=== PATIENT | female | born 1940 | race Caucasian/White ===

== ENCOUNTER → 2020-04-17 10:38 | Outpatient (CLI) | payer MEDICARE, SELFPAY ==
--- NOTE | 2020-04-17 | DI.MRI.S_ITS ---
PROCEDURE: MR SHOULDER LT WO CON INDICATIONS: Fracture of left shoulder girdle, part unspecified TECHNIQUE: Noncontrast oblique coronal T2 fast spin echo with fat saturation, oblique sagittal T1 spin echo and T2 fast spin echo with fat saturation, axial T1 spin echo and T2 fast spin echo with fat saturation through the shoulder. COMPARISON: None. FINDINGS: Image quality: Excellent. Rotator cuff: There is tendinosis and low-grade articular and bursal surface partial thickness tear involving distal supraspinatus at its insertion on the humeral head extending to musculotendinous junction. Distal infraspinatus tendinosis is also seen. Distal subscapularis tendinosis and low-grade intrasubstance partial-thickness tear is also noted. No full-thickness rotator cuff tendon rupture. Sagittal images demonstrate mild to moderate supraspinatus muscle atrophy. Bones and bursae: No bone marrow contusions or fractures. Moderate acromioclavicular joint and glenohumeral joint osteoarthritic changes are seen. Small to moderate amount of joint effusion and subacromial subdeltoid bursal fluid is noted. Capsule and soft tissues: In the absence of intra-articular contrast, there is suggestion of posterior superior labral tear at 11 to 12 o'clock position and anterior-inferior labral tear at 5 to 6 o'clock position. The glenohumeral ligaments appear intact. The long head of the biceps tendon demonstrates normal location and morphology. The rotator interval appears normal, without fibrosis. The coracohumeral ligament is normal in thickness. IMPRESSION: 1. Tendinosis and low-grade articular and bursal surface partial thickness tear involving distal supraspinatus extending to musculotendinous junction. Distal infraspinatus tendinosis. Distal subscapularis tendinosis and low-grade intrasubstance partial-thickness tear. No full-thickness rotator cuff tendon rupture. 2. Moderate acromioclavicular joint and glenohumeral joint osteoarthritis. 3. Suggestion of posterior superior labral tear at 11 to 12 o'clock position and anterior-inferior labral tear at 5 to 6 o'clock position. Dictated by: Ozzie Bravo M.D. on 04/17/2020 at 12:00 Approved by: Ozzie Bravo M.D. on 04/17/2020 at 12:02
== END ==
PROVIDERS: Family Provider Ophthalmology; PCP Family Medicine; Referring Provider Family Medicine; Visit Provider Orthopaedic Surgery Adult Reconstructive Orthopaedic Surgery
DX: S42.92XA Fracture of left shoulder girdle, part unspecified, initial encounter for closed fracture (principal); M75.112 Incomplete rotator cuff tear or rupture of left shoulder, not specified as traumatic; M47.812 Spondylosis without myelopathy or radiculopathy, cervical region; X58.XXXA Exposure to other specified factors, initial encounter
CPT/HCPCS: 73221

== ENCOUNTER → 2021-11-19 10:10 | Outpatient (CLI) | payer MEDICARE, SELFPAY ==
[2021-11-19 19:59] LABS: Add Manual Diff / Slide Review NO; Basophils Absolute Auto 0 /uL (0-100); Basophils Percent Auto 0.6 % (0-2); Eosinophils Absolute Auto 100 /uL (0-450); Eosinophils Percent Auto 3.2 % (2-4); Hematocrit 38.8 % (36-46); Hemoglobin 12.9 g/dL (12.0-16.0); Lymphocytes Absolute Auto 1200 /uL (1100-4500); Lymphocytes Percent Auto 32.9 % (25-40); Mean Corpuscular HGB Conc 33.2 % (30-36); Mean Corpuscular Hemoglobin 29.7 PG (26-34); Mean Corpuscular Volume 89.5 fL (80-100); Monocytes Absolute Auto 300 /uL (0-900); Monocytes Percent Auto 7.4 % (3-14); Neutrophils Absolute Auto 2100 /uL (1500-7000); Neutrophils Percent Auto 55.9 % (50-75); Platelet Count 207 X10^3/uL (150-400); Red Blood Cell Count 4.34 X10^6/uL (4.0-5.2); Red Cell Distribution Width 13.7 % (11.6-14.8); White Blood Cell Count 3.8 X10^3/uL (4.5-11.0)
[2021-11-19 20:01] LABS: Blood Urea Nitrogen 26 mg/dL (7-17); Calcium 9.2 mg/dL (8.4-10.2); Carbon Dioxide 28 mmol/L (22-32); Chloride 108 mmol/L (98-107); Cholesterol 186 mg/dL (140-199); Estimated Glomerular Filt Rate > 60 mL/min (>60); Glucose 95 mg/dL (80-110); HDL Cholesterol 70 mg/dL (40-60); LDL Cholesterol Calculated 106 mg/dL (<100); Potassium 4.5 mmol/L (3.4-5.1); Sodium 141 mmol/L (137-145); Triglycerides 50 mg/dL (35-150)
[2021-11-19 20:42] LABS: TSH w/ Reflex to FT4 1.67 uIU/mL (0.47-4.68)
[2021-11-19 21:03] LABS: HEMOLYSIS < 15 (0-50); Vitamin B12 367 pg/mL (239-931)
== END ==
PROVIDERS: Family Provider Ophthalmology; PCP Family Medicine; Visit Provider Family Medicine
DX: I10 Essential (primary) hypertension (principal); M25.512 Pain in left shoulder; F33.1 Major depressive disorder, recurrent, moderate; G89.29 Other chronic pain; M54.6 Pain in thoracic spine; R53.83 Other fatigue; T69.1XXD Chilblains, subsequent encounter; Z13.220 Encounter for screening for lipoid disorders; T69.1XXA Chilblains, initial encounter
CPT/HCPCS: 80048; 80061; 82607; 84443; 85025

== ENCOUNTER → 2022-10-08 13:01 | Outpatient (CLI) | payer MEDICARE, SELFPAY ==
[2022-10-08 20:14] LABS: Add Manual Diff / Slide Review NO; Basophils Absolute Auto 0 /uL (0-100); Basophils Percent Auto 0.7 % (0-2); Eosinophils Absolute Auto 200 /uL (0-450); Eosinophils Percent Auto 3.9 % (2-4); Hematocrit 40.2 % (36-46); Hemoglobin 13.3 g/dL (12.0-16.0); Lymphocytes Absolute Auto 1200 /uL (1100-4500); Lymphocytes Percent Auto 28.6 % (25-40); Mean Corpuscular Hemoglobin 29.6 PG (26-34); Mean Corpuscular Volume 89.8 fL (80-100); Monocytes Absolute Auto 500 /uL (0-900); Monocytes Percent Auto 10.6 % (3-14); Neutrophils Absolute Auto 2400 /uL (1500-7000); Neutrophils Percent Auto 56.2 % (50-75); Platelet Count 233 X10^3/uL (150-400); Red Blood Cell Count 4.47 X10^6/uL (4.0-5.2); Red Cell Distribution Width 13.4 % (11.6-14.8); White Blood Cell Count 4.3 X10^3/uL (4.5-11.0)
[2022-10-08 20:22] LABS: Blood Urea Nitrogen 18 mg/dL (7-17); Calcium 9.5 mg/dL (8.4-10.2); Carbon Dioxide 29 mmol/L (22-32); Chloride 102 mmol/L (98-107); Estimated Glomerular Filt Rate > 60 mL/min (>60); Glucose 79 mg/dL (80-110); HEMOLYSIS 17 (0-50); Potassium 4.1 mmol/L (3.4-5.1); Sodium 138 mmol/L (137-145)
[2022-10-08 21:04] LABS: Vitamin B12 500 pg/mL (239-931)
== END ==
PROVIDERS: Family Provider Ophthalmology; PCP Family Medicine; Visit Provider Family Medicine
DX: F32.1 Major depressive disorder, single episode, moderate (principal); D72.819 Decreased white blood cell count, unspecified; I10 Essential (primary) hypertension; E53.8 Deficiency of other specified B group vitamins
CPT/HCPCS: 80048; 82607; 85025

== ENCOUNTER → 2023-05-13 10:03 | Outpatient (CLI) | payer MEDICARE, SELFPAY ==
[2023-05-13 11:36] LABS: Add Manual Diff / Slide Review NO; Basophils Absolute Auto 0 /uL (0-100); Basophils Percent Auto 0.6 % (0-2); Eosinophils Absolute Auto 100 /uL (0-450); Eosinophils Percent Auto 2.1 % (2-4); Hematocrit 39.1 % (36-46); Hemoglobin 13.1 g/dL (12.0-16.0); Lymphocytes Absolute Auto 1200 /uL (1100-4500); Mean Corpuscular HGB Conc 33.4 % (30-36); Mean Corpuscular Hemoglobin 29.3 PG (26-34); Mean Corpuscular Volume 87.8 fL (80-100); Monocytes Absolute Auto 300 /uL (0-900); Monocytes Percent Auto 6.9 % (3-14); Neutrophils Absolute Auto 3000 /uL (1500-7000); Neutrophils Percent Auto 64.4 % (50-75); Platelet Count 221 X10^3/uL (150-400); Red Blood Cell Count 4.46 X10^6/uL (4.0-5.2); Red Cell Distribution Width 14.7 % (11.6-14.8); White Blood Cell Count 4.6 X10^3/uL (4.5-11.0)
[2023-05-13 12:16] LABS: BUN Creatinine Ratio 34.4 (6-22); Blood Urea Nitrogen 21 mg/dL (7-17); Carbon Dioxide 29 mmol/L (22-32); Chloride 106 mmol/L (98-107); Estimated Glomerular Filt Rate > 60 mL/min (>60); Glucose 92 mg/dL (80-110); HEMOLYSIS < 15 (0-50); Potassium 4.1 mmol/L (3.4-5.1); Sodium 139 mmol/L (137-145)
[2023-05-13 12:53] LABS: Bilirubin Urine UA NEGATIVE (NEGATIVE); Glucose Urine UA NEGATIVE (Negative); Ketones Urine UA NEGATIVE (NEGATIVE); Leukocyte Esterase Urine UA TRACE (NEGATIVE); Nitrite Urine UA NEGATIVE (Negative); Occult Blood Urine UA NEGATIVE (Negative); Protein Urine UA NEGATIVE (Negative); Specific Gravity Urine UA 1.015 (1.000-1.035); Urobilinogen Urine UA 0.2 E.U./dL (0.2)
[2023-05-13 13:13] LABS: Appearance Urine UA Clear; Color Urine UA Yellow; pH Urine UA 6.5 (4.5-8.0)
[2023-05-13 13:14] LABS: Bacteria Urine Occasional (0-1); Culture Indicated Urine Specimen Cultured; RBC Urine None Seen (0-5/HPF); Squamous Epithelial Cell Urine 0-1 /HPF (0-5/HPF); WBC Urine 0-1/HPF (0-5/HPF)
== END ==
PROVIDERS: Family Provider Ophthalmology; PCP Family Medicine; Referring Provider Orthopaedic Surgery; Visit Provider Orthopaedic Surgery
DX: Z01.818 Encounter for other preprocedural examination (principal); Z01.812 Encounter for preprocedural laboratory examination; N39.0 Urinary tract infection, site not specified
CPT/HCPCS: 36415; 80048; 81001; 85025; 87086; 93005

== ENCOUNTER → 2023-06-17 12:16 | Outpatient (CLI) | payer MEDICARE, SELFPAY ==
--- NOTE | 2023-06-17 | DI.CT.S_ITS ---
PROCEDURE: CT SHOULDER LEFT WITHOUT CON INDICATIONS: Primary osteoarthritis, left shoulder TECHNIQUE: Noncontrast 1-1.5 mm thick sections acquired from the acromioclavicular joint to the inferior scapula, with coronal and sagittal reformatting. COMPARISON: None. FINDINGS: Image quality: Excellent. Bones: Moderate acromioclavicular joint osteoarthritic changes are seen with joint space narrowing, subchondral sclerosis and downward osteophyte formation depressing the musculotendinous junction of supraspinatus. Severe glenohumeral joint osteoarthritic changes are seen with complete loss of joint space, extensive subchondral sclerosis and prominent marginal osteophyte formation. There is no acute shoulder fracture or dislocation. No suspicious bony lesions. The visualized left upper to mid ribs are intact. Soft tissues: There is no full-thickness rotator cuff tendon rupture. [id number] supraspinatus muscle atrophy is noted on sagittal images. No abnormal soft tissue calcifications. Moderate joint effusion and subacromial subdeltoid bursal fluid is seen, no calcified intra-articular loose bodies. There is no axillary lymphadenopathy by size criteria. Visualized left lung field is clear. IMPRESSION: 1. Moderate acromioclavicular joint osteoarthritis and severe glenohumeral joint osteoarthritis. No shoulder fracture or dislocation. No suspicious bony lesions. 2. No full-thickness rotator cuff tendon rupture. Mild to moderate supraspinatus muscle atrophy. No abnormal soft tissue calcifications. 3. Moderate joint effusion and subacromial subdeltoid bursal fluid. No calcified loose bodies. Dictated by: Ozzie Bravo M.D. on 06/17/2023 at 17:12 Approved by: Ozzie Bravo M.D. on 06/17/2023 at 17:14
== END ==
PROVIDERS: Family Provider Ophthalmology; PCP Family Medicine; Referring Provider Orthopaedic Surgery; Visit Provider Orthopaedic Surgery
DX: M19.012 Primary osteoarthritis, left shoulder (principal); M25.412 Effusion, left shoulder
CPT/HCPCS: 73200

== ENCOUNTER 2023-06-30 08:36 | Inpatient (IN) | payer MEDICARE, SELFPAY ==
[2023-06-22 08:54] VITALS: BMI 28.6
[2023-06-30] MEDS: LACTATED RINGERS 1,000 ML 42 ML IV (09:03)
[2023-06-30 09:04] VITALS: BP 194/84; PULSE 64; RESP 16; TEMP 36.1; O2SAT 100; BMI 28.6
[2023-06-30] MEDS: ACETAMINOPHEN 325 MG TABLET 975 MG PO (10:23)
--- NOTE | 2023-06-30 10:30 | DI.RAD.S_ITS ---
PROCEDURE: XR SHOULDER LT 1V INDICATIONS: post-op RTSA TECHNIQUE: 1 views of the shoulder were acquired. COMPARISON: None. FINDINGS: Bones: No fractures or dislocations. Postoperative changes from reverse left shoulder arthroplasty. The hardware is in expected position. No suspicious bony lesions. Visualized ribs appear intact. Soft tissues: No suspicious soft tissue calcifications. Overlying postsurgical changes are present. IMPRESSION: Expected postoperative appearance of left reverse shoulder arthroplasty. Dictated by: Ramana Downs M.D. on 06/30/2023 at 14:04 Approved by: Ramana Downs M.D. on 06/30/2023 at 14:06
--- NOTE | 2023-06-30 10:37 | PM.PREOP ---
Pre-operative Note Interval Note History & Physical reviewed/Exam performed by Physician: Yes Changes to H&P: No
[2023-06-30] MEDS: CEFAZOLIN 2 GM/100 ML PREMIX 100 ML IV (11:13)
--- NOTE | 2023-06-30 11:14 | SUR.PREOP ---
Block start time [1045] . Monitoring initiated and maintained throughout procedure. Oxygen and medications given per anesthesiologist instructions. Patient remained stable throughout procedure, no adverse reactions noted. Block end time [1050].
--- NOTE | 2023-06-30 11:41 | SUR.OPER ---
Beach chair with [place] shoulder positioner. Lower body on padded OR bed. Head in foam padded head cradle, secured with straps. Non-operative arm secured <90 degrees abduction. Pillow under knees. Safety belt at thigh. Cloth tape over blanket over lower legs. operative arm draped free
[2023-06-30] MEDS: TRANEXAMIC ACID 1,000 MG VIAL 1000 MG INJ (11:54)
[2023-06-30] MEDS: BUPIVACAINE 0.25% (PF) 30 ML, EPINEPHrine 0.15 MG INJ (11:54)
--- NOTE | 2023-06-30 13:08 | P.OP_ITS ---
Operative Date/Time/Diagnoses Date of procedure: 06/30/23 Time of procedure: 13:09 Pre-op diagnosis: Left rotator cuff tear arthropathy Post-op diagnosis: same Procedure & Clinicians Procedure: Left reverse total shoulder arthroplasty Same procedure as scheduled: Yes Indications: Indications: This is a who has rotator cuff arthropathy. Symptoms have been present for years, insidious onset. Patient has failed conservative therapy including injections, physical therapy, anti-inflammatories and activity modification. After extensive discussion in clinic, they wished to go forward with surgery. Risks and benefits were described including the risk of infection, bleeding, damage to internal structures including nerves. We also discussed the risk of failure of surgery and the need for revision surgery as well as the risk of anesthesia. The patient expressed understanding with these risks and wished to go forward with surgery. Surgeon: Alex Suazo Consulting Engineer: Keely Billings Anesthesia Type: General Operative Notes Findings: Findings: Osteoarthritis of the glenoid and humeral head as well as a defient rotator cuff as noted on preoperative imaging and under direct visualization Closure Type: primary Specimen(s): none sent Prosthetic devices, grafts, tissues, transplants, or devices: Tornier implants Base plate: standard 25 mm, 15 degree wedge Glenosphere: Standard 36 mm Stem: Perform 3 Poly: +0 concentric Estimated Blood Loss (mL): 50 Procedure in detail: Patient was seen in the preoperative holding unit. The correct left shoulder was identified and marked with my initials. Again we discussed the risks and benefits of surgery and they wished to go forward with surgery. The patient was brought back to the operating room and placed supine on the operating table. Smooth endotracheal intubation was performed by anesthesia. All prominences were padded and they were placed into the beach chair position. Intravenous antibiotics were given. The left shoulder was then prepped with the standard sterile preparation and draping. A time-out was then performed in my initials were again identified on the correct shoulder. 1 g of IV tranexamic acid was given. A standard deltopectoral incision was made. Skin flaps were made. The cephalic vein was identified and retracted laterally. This was protected throughout the remainder of the case. Sharp dissection was made along the deltoid, subacromial and subcoracoid space to release adhesions. The conjoined tendon was identified and the axillary nerve was palpated and continuous using the tug test. It was protected throughout the remainder of the case. A brown retractor was placed underneath the deltoid muscle and a darach retractor underneath the conjoint tendon. The anterior circumflex artery and associated veins on the lower border of the subscapularis were identified and tied off using 0-Vicryl. The biceps tendon was identified in the bicipital groove. This was released from its sheath, and taken from its origin on the glenoid and tied into the pectoralis tendon for a solid tenodesis. We then began a subscapularis peel. The subscapularis was tagged with an Ethibond suture. A 360 degree circumferential release of the subscapularis was performed with protection of the axillary nerve. The coracohumeral ligament was released at the base of the coracoid. The coracoacromial ligament was left intact. The shoulder was then dislocated. Osteophytes were removed using combination of rongeur and osteotome. The rotator cuff was noted to be insufficient. An intramedullary guide was used set at version of 20 ?. Using an oscillating saw a conservative humeral head cut was made. Impaction reamers were reamed up to a size 3 stem with a built-in angle 135?. A neck protector was placed. Attention was then turned to the glenoid. After retracting the humeral head posteriorly a circumferential release was performed of the capsule with protection of the axillary nerve. The labrum was then released starting at the biceps anchor and going around the rim a small amount of triceps was released from the inferior glenoid. A center guide pin was then placed using the guide, followed by Reamer. After adequate cartilage was removed the center drill hole was drilled and measured. The base plate was then implanted and screwed into place. The superior drill hole was drilled and filled in a nonlocking fashion, followed by the inferior and anterior holes in locking fashion, the posterior hole was also filled. A 36 standard glenosphere was then selected and screwed into place onto the base plate. Turning back to the humerus, the humeral head was delivered and trialed with a 0 concentric. The arm was taken through range of motion and this was felt to be stable. The trial was then removed and a dilute Betadine wash was then performed with 1 L of sterile saline. Before placing the final implant, drill holes were made in the bicipital groove for the subscapularis repair, and sutures were passed through the drill holes. The final stem was then impacted into the humerus. The shoulder was then reduced and again brought through range of motion and was felt to be stable. The subscap was noted to be deficient and was unable to be repaired. The deltopectoral interval was then closed with #2 Ethibond. The skin was closed with 2-0 PDS and Monocryl followed by Aquacel dressing. Patient was awoken from anesthesia and brought back to the postoperative recovery unit without issue. They were placed into a sling. Assisting participation: This operation could not have been safely performed ( without compromising the technical results or length of the procedure) without the assistance of a skilled certified surgical first assistant. The certified surgical first assistant was medically necessary for proper positioning, retraction and manipulation of instruments, proper exposure, graft prep, and manipulation of tissue. Complications: none Post-operative Condition: stable Disposition: PACU Plan for aftercare: Postoperative instructions: Sling to remain on for 6 weeks. No external rotation past neutral for 6 weeks. Okay for the sling to come off for shower. Okay to shower over the Aquacel dressing. If any water gets underneath the dressing, remove the dressing. First postoperative visit in 2 weeks.
[2023-06-30 13:20] VITALS: BP 114/52; PULSE 61; RESP 13; TEMP 36.9; O2SAT 94
[2023-06-30 13:25] VITALS: BP 111/45; PULSE 60; RESP 12; O2SAT 94
[2023-06-30] MEDS: ONDANSETRON 4 MG/2 ML INJ IV (13:29)
[2023-06-30 13:30] VITALS: BP 104/65; PULSE 60; RESP 13; O2SAT 93
[2023-06-30 13:45] VITALS: BP 124/60; PULSE 61; RESP 14; O2SAT 95
[2023-06-30 14:00] VITALS: BP 124/59; PULSE 60; RESP 16; TEMP 36.4; O2SAT 95
== END 2023-06-30 14:50 | disposition home or self-care (01) | DRG 483 ==
PROVIDERS: Admitting Provider Orthopaedic Surgery; Family Provider Ophthalmology; PCP Family Medicine; Referring Provider Orthopaedic Surgery; Visit Provider Orthopaedic Surgery
PROC: 0RRK00Z Replacement of Left Shoulder Joint with Reverse Ball and Socket Synthetic Substitute, Open Approach (ICD-10-PCS; CPT 23472; principal; 2023-06-30 10:15)
DX: M19.012 Primary osteoarthritis, left shoulder (principal); M75.102 Unspecified rotator cuff tear or rupture of left shoulder, not specified as traumatic
CPT/HCPCS: 64450; 73020; C1776; J0171; J0360; J0690; J1100; J1885; J2250; J2405; J3010

== ENCOUNTER → 2024-03-21 16:50 | Outpatient (CLI) | payer MEDICARE, SELFPAY | PROVIDERS: Family Provider Ophthalmology; PCP Family Medicine; Visit Provider Physician Assistant Medical | DX: N39.41 Urge incontinence (principal) | CPT/HCPCS: 87086 ==

== ENCOUNTER → 2024-03-28 15:09 | Outpatient (CLI) | payer MEDICARE, SELFPAY ==
--- NOTE | 2024-03-28 15:11 | DI.MRI.S_ITS ---
PROCEDURE: MR HEAD/BRAIN WO/W CON INDICATIONS: continued dizziness TECHNIQUE: Noncontrast axial T1 spin echo, axial T2 fast spin echo, sagittal and axial FLAIR, coronal T2 fast spin echo, axial gradient echo, axial diffusion and ADC through the brain. After the administration of contrast, axial and coronal and sagittal 3D VIBE or T1 spin echo with fat saturation through the brain. COMPARISON: None. FINDINGS: CSF Spaces: Basal cisterns are patent. No extra-axial fluid collections. Ventricles are normal in size and shape. Brain: No intracranial masses or hemorrhage. East/white matter interface is normal. Brainstem appears normal. Diffusion-weighted sequence is unremarkable without evidence of acute infarct. Normal intravascular flow voids are present. Skull and face: Calvarial marrow is normal in signal. Orbits appear normal. Bilateral intraocular lens replacements noted. Sinuses: Left maxillary sinus mucosal thickening measures up to 5 mm. Internal sinus debris present IMPRESSION: Mild age related atrophy and white matter chronic ischemic change without acute infarct, hemorrhage or mass lesion. Left maxillary mucosal sinus disease Approved by: Adriel Rousseau M.D. on 03/29/2024 at 12:49
--- NOTE | 2024-03-28 15:11 | DI.US.S_ITS ---
PROCEDURE: US PERIPH VENOUS LOW EXTREM BI INDICATIONS: L>R leg swelling since surgery in June TECHNIQUE: Real-time imaging, as well as color and pulse Doppler interrogation, were performed of the deep veins of both legs from the inguinal ligament to the popliteal fossa, with documentation of the visualized calf veins. COMPARISON: None. FINDINGS: Right: The common femoral, femoral, popliteal, and the visualized calf veins are normally compressible, and free of intraluminal thrombus. Color and pulse Doppler demonstrate normal phasic intravascular flow. There is normal augmentation response to distal compression maneuver. Left: The common femoral, femoral, popliteal, and the visualized calf veins are normally compressible, and free of intraluminal thrombus. Color and pulse Doppler demonstrate normal phasic intravascular flow. There is normal augmentation response to distal compression maneuver. On the left, there is a popliteal fluid collection seen without abnormal vascularity measuring 19 x 18 x 27 mm, likely representing a Noriega's cyst. IMPRESSION: No findings of deep venous thrombosis in either lower extremity. Dictated by: Ubaldo Diaz M.D. on 03/28/2024 at 16:14 Approved by: Ubaldo Diaz M.D. on 03/28/2024 at 16:15
[2024-03-28 15:47] LABS: Hematocrit 41.1 % (36-46); Hemoglobin 13.6 g/dL (12.0-16.0); Mean Corpuscular Hemoglobin 29.5 PG (26-34); Mean Corpuscular Volume 89.5 fL (80-100); Platelet Count 233 X10^3/uL (150-400); Red Blood Cell Count 4.59 X10^6/uL (4.0-5.2); Red Cell Distribution Width 13.9 % (11.6-14.8); White Blood Cell Count 5.7 X10^3/uL (4.5-11.0)
[2024-03-28 16:08] LABS: Alanine Aminotransferase 13 IU/L (<35); Albumin 3.8 g/dL (3.5-5.0); Albumin Globulin Ratio 1.4 (1.0-2.8); Alkaline Phosphatase 109 U/L (38-126); Aspartate Aminotransferase 22 IU/L (14-36); BUN Creatinine Ratio 24.6 (6-22); Bilirubin Total 0.9 mg/dL (0.2-1.3); Blood Urea Nitrogen 16 mg/dL (7-17); Calcium 9.7 mg/dL (8.4-10.2); Carbon Dioxide 29 mmol/L (22-32); Chloride 107 mmol/L (98-107); Estimated Glomerular Filt Rate > 60 mL/min (>60); Globulin 2.7 g/dL (1.7-4.1); Glucose 100 mg/dL (80-110); HEMOLYSIS < 15 (0-50); Potassium 4.4 mmol/L (3.4-5.1); Sodium 140 mmol/L (137-145); Total Protein 6.5 g/dL (6.3-8.2)
[2024-03-28 18:01] LABS: TSH w/ Reflex to FT4 1.93 uIU/mL (0.47-4.68)
== END ==
PROVIDERS: Family Provider Ophthalmology; PCP Family Medicine; Referring Provider Physician Assistant Medical; Visit Provider Physician Assistant Medical
DX: G31.9 Degenerative disease of nervous system, unspecified (principal); R42 Dizziness and giddiness; J32.0 Chronic maxillary sinusitis; M79.605 Pain in left leg; I10 Essential (primary) hypertension; N39.41 Urge incontinence
CPT/HCPCS: 36415; 70553; 80053; 82384; 84443; 85027; 87086; 93970; A9579

== ENCOUNTER → 2024-04-04 07:58 | Outpatient (CLI) | payer MEDICARE, SELFPAY | PROVIDERS: Family Provider Ophthalmology; PCP Family Medicine; Visit Provider Physician Assistant Medical | DX: N39.41 Urge incontinence (principal) | CPT/HCPCS: 87086 ==

== ENCOUNTER → 2024-06-21 12:13 | Outpatient (CLI) | payer MEDICARE, SELFPAY ==
--- NOTE | 2024-06-21 12:17 | DI.US.S_ITS ---
PROCEDURE: US RENAL COMPLETE INDICATIONS: uncontrolled HTN TECHNIQUE: Real-time scanning was performed of the kidneys and bladder, with image documentation. COMPARISON: None. FINDINGS: Kidneys: Kidneys are normal in size. Right kidney measures 10.5 cm long; left kidney measures 10.5 cm long. Right renal cortical thickness is 1.6 cm; left renal cortical thickness is 1.4 cm. Renal cortical echotexture is normal. No hydronephrosis or nephrolithiasis. No suspicious solid mass lesions. Bladder: Pre-void bladder volume is 81 mL. Post-void residual is 58 mL. Pre-void images demonstrate no intraluminal masses or stones. On pre-void images, neither ureteral jets are noted with color Doppler interrogation. (Of note, ureteral jets may not be detectable in up to 25% of cases due to insufficient differences in specific gravity between ureteral and bladder urine). Miscellaneous: No free pelvic fluid. IMPRESSION: Unremarkable ultrasound of the kidneys Approved by: Adriel Rousseau M.D. on 06/23/2024 at 12:05
--- NOTE | 2024-06-21 13:21 | DI.ECHO.S_ITS ---
[facility] : : [address] : : [place] : : [id number] : : Phone: [phone] Echocardiogram Report + :Name: SARAH ROMAN Study Date: 06/21/2024 Height: 63 in : :[facility] ReadingLocation: Weight: 165 lb : : Gender: Female BSA: 1.8 m2 : :: 1940 Age: 83 yrs BP: 183/95 mmHg: :Reason For Study: Syncope : :Ordering Physician: NEGRO, : :DECLAN Performed By: Xuan Balderas : :Referring: DECLAN TOM : + Interpretation Summary 1. Left ventricular contractility is normal. Estimate ejection fraction is greater than 55% with no segmental wall motion abnormalities. No LVH. Unable to comment on diastolic function. 2. The right ventricular contractility is normal. 3. Biatrial enlargement. All other cardiac chambers are of normal size. 4. Mild to moderate mitral regurgitation. 5. Mild aortic insufficiency. 6. No obvious intracardiac shunts. 7. No obvious intracardiac masses nor thrombi. 8. No hemodynamically significant pericardial effusion. 9. Elevated right-sided filling pressures. Conclusion: Normal biventricular systolic function with mild to moderate valvular insufficiencies. Procedure: A two-dimensional transthoracic echocardiogram with color flow and Doppler was performed. The study quality was technically adequate. There is no prior echocardiogram noted for this patient. The patient was in a bradycardic rhythm during the exam. The heart rate ranged between 40-56 bpm during the study. Left Ventricle: The left ventricle is normal in size and wall thickness. The ejection fraction is estimated to be 55-60%. Diastolic function could not be accurately assessed due to contradictory data. Right Ventricle: The right ventricle is normal in size and function. Atria: The left atrium is moderately dilated. The right atrium is moderate to severely dilated. There is no Doppler evidence for an interatrial shunt. Mitral Valve: The mitral valve leaflets appear mildly thickened, but open well. The mitral valve leaflets are slightly calcified. There is mild mitral annular calcification. There is no mitral valve stenosis. There is mild to moderate mitral regurgitation. Aortic Valve: The aortic valve is trileaflet. The aortic valve opens well. The aortic valve is slightly calcified. There is no hemodynamically significant valvular aortic stenosis. There is mild aortic regurgitation. Tricuspid Valve: The tricuspid valve leaflets are thin and pliable. There is a trace or physiologic amount of tricuspid regurgitation. Pulmonic Valve: The pulmonic valve is not well seen, but is grossly normal. There is no pulmonic valvular regurgitation. Great Vessels: The aortic root is normal size. The ascending aorta is at the upper limits of normal in size. The aortic arch is normal in size. The pulmonary artery is not well visualized, but is probably normal size. The IVC is dilated (diameter is greater than 2.1 cm) and it collapses less than 50% with a sniff. This suggests a high right atrial pressure of 15 mm Hg. Pericardium/ Pleura There is an anterior echo-free space consistent with a fat pad. There is no pericardial effusion. There is no pleural effusion. MMode/2D Measurements & Calculations LVIDd: 5.0 cm LVOT diam: 1.9 cm LVIDs: 3.0 cm Ao root diam: 3.0 cm FS: 40.3 % asc Aorta Diam: 3.7 cm EPSS: 0.88 cm Ao Arch Diam (Prox Trans): 2.0 cm IVSd: 1.00 cm LVPWd: 0.99 cm LV silva. diameter/BSA (cm/m^2): 2.8 LV sys. diameter/BSA (cm/m^2): 1.7 LA A2 area: 27.3 cm2 RA long axis: 6.0 cm LA A4 area: 20.8 cm2 RA area: 24.4 cm2 LA length (vol): 5.7 cm RA vol: 84.4 ml LA vol: 83.9 ml RA : 47.2 ml/m2 LA vol index: 46.9 ml/m2 IVC diam: 3.0 cm TAPSE: 2.4 cm Doppler Measurements & Calculations Ao V2 max: 191.7 cm/sec LVOT Max Korey: 120.2 cm/sec Ao V2 mean: 114.6 cm/sec LV V1 max P.8 mmHg Ao max P.7 mmHg LV V1 VTI: 28.4 cm Ao mean P.2 mmHg ANTWAN(I,D): 1.9 cm2 Ao V2 VTI: 42.3 cm ANTWAN(V,D): 1.8 cm2 sev ratio: 0.67 ANTWAN indexed to BSA (cm^2/m^2): 1.1 AI P1/2t: 1037 msec AI dec slope: 90.1 cm/sec2 MV E max korey: 78.7 cm/sec TR max korey: 242.9 cm/sec MV A max korey: 74.0 cm/sec TR max P.6 mmHg MV E/A: 1.1 PA V2 max: 96.1 cm/sec Med Peak E' Korey: 7.6 cm/sec PA V2 mean: 67.0 cm/sec E/E' med: 10.4 PA mean P.0 mmHg Lat Peak E' Korey: 9.1 cm/sec PA pr(Accel): 39.6 mmHg E/E' lat: 8.7 E/e' average: 9.5 MV dec time: 0.12 sec MVA(VTI): 2.2 cm2 MV V2 mean: 38.4 cm/sec SV(LVOT): 80.8 ml MV mean P.83 mmHg MV V2 VTI: 36.6 cm Reading Physician:
[2024-06-21 14:10] LABS: BUN Creatinine Ratio 15.8 (6-22); Blood Urea Nitrogen 12 mg/dL (7-17); Calcium 9.7 mg/dL (8.4-10.2); Carbon Dioxide 34 mmol/L (22-32); Chloride 98 mmol/L (98-107); Estimated Glomerular Filt Rate > 60 mL/min (>60); Glucose 83 mg/dL (80-110); HEMOLYSIS < 15 (0-50); Potassium 3.8 mmol/L (3.4-5.1); Sodium 136 mmol/L (137-145)
== END ==
PROVIDERS: Internal Medicine Cardiovascular Disease; Family Provider Ophthalmology; PCP Family Medicine; Referring Provider Family Medicine; Visit Provider Family Medicine
DX: I10 Essential (primary) hypertension (principal); R55 Syncope and collapse; I08.0 Rheumatic disorders of both mitral and aortic valves; R42 Dizziness and giddiness
CPT/HCPCS: 36415; 76770; 80048; 93306

== ENCOUNTER → 2024-07-19 10:29 | Outpatient (CLI) | payer MEDICARE, SELFPAY ==
--- NOTE | 2024-07-19 10:31 | DI.MRI.S_ITS ---
PROCEDURE: MR THORACIC SPINE WO CON INDICATIONS: wedging of vertebrae, chronic thoracic / lumbar back pain TECHNIQUE: Noncontrast sagittal T1 spine echo and T2 fast spin echo, sagittal STIR, and T2 fast spin echo through the thoracic spine. COMPARISON: [facility], CT, CT SHOULDER LEFT WITHOUT CON, 06/17/2023, 12:24. FINDINGS: Image quality: Excellent. Exaggerated kyphosis of the thoracic spine. Mild retrolisthesis of T12 on L1. Grade 1 anterolisthesis of L3 on L4. Partial osseous fusion of T5-T7, T9-T10.Vertebral body height of the thoracic spine are well maintained. Multilevel fibrovascular endplate change, most pronounced and moderate at T10-T11. No suspicious marrow replacing lesion. Large vertebral hemangioma in T12 vertebral body. Multilevel disc desiccation. No significant disc bulge. Cord signal: Within normal limit Central canal stenosis: None. Right neural foraminal stenosis: Nonsignificant. Left neural foraminal stenosis: Mild at T12-L1, and L1-L2, mild at L2-L3. Other soft tissue findings: 2.4 cm lesion in the left lung apex. Visualized thoracic aorta is unremarkable. IMPRESSION: 1. Exaggerated kyphosis of the thoracic spine without vertebral body fracture. 2. Degenerative changes as described above. Multilevel mild left neural foraminal stenosis. 3. 2.4 cm lesion versus consolidation in the left lung apex, incompletely evaluated. Underlying malignancy cannot be excluded. Recommend further evaluation with CT chest. Dictated by: Mary Tran M.D. on 07/19/2024 at 14:33 Approved by: Mary Tran M.D. on 07/19/2024 at 14:47
--- NOTE | 2024-07-19 10:31 | DI.MRI.S_ITS ---
PROCEDURE: MR LUMBAR SPINE WO CON INDICATIONS: wedging of vertebrae, chronic thoracic / lumbar back pain TECHNIQUE: Noncontrast sagittal T1 spin echo and T2 fast echo, sagittal STIR, and T2 fast spin echo through the lumbar spine. In cases with scoliosis, additional coronal T2 fast spin echo may be performed. COMPARISON: [facility], MR, MR THORACIC SPINE WO CON, 07/19/2024, 11:14. FINDINGS: Image quality: Excellent Mild retrolisthesis of T12 on L1, L1 on L2. Vertebral body heights of the lumbar spine are well maintained. Multilevel fibrovascular endplate change of the lumbar spine, most pronounced at L3-4. Vertebral hemangioma in the posterior T12 vertebral body. Multilevel disc desiccation disc bulge. Conus terminates at the level of T12-L1, and is unremarkable. Right neural foraminal stenosis: Mild at L3-4. Left neural foraminal stenosis: Mild at T12-L1, L1-L2, L2-L3, L3-L4. Axial images: T12-L1: Posterior disc uncovering. No central canal stenosis. L1-2: Posterior disc uncovering. No central canal stenosis. L2-3: Mild disc bulge. Mild bilateral facet arthropathy. Ligamentum flava hypertrophy. No central canal stenosis. L3-4: Mild bilateral facet arthropathy. No central canal stenosis. L4-5: Mild bilateral facet arthropathy. No central canal stenosis. L5-S1: Moderate bilateral facet arthropathy. No central canal stenosis. Mild degenerative change of the left sacroiliac joint. The visualized sacrum is intact. No abdominal aortic aneurysm. IMPRESSION: 1. Multilevel degenerative changes lumbar spine , most pronounced at L3-4, where there is mild bilateral neural foraminal stenosis. 2. No central canal stenosis of the lumbar spine. Dictated by: Mary Tran M.D. on 07/19/2024 at 14:48 Approved by: Mary Tran M.D. on 07/19/2024 at 15:01
--- NOTE | 2024-07-19 10:31 | DI.RAD.S_ITS ---
PROCEDURE: XR DEXA AXIAL SKELETON INDICATIONS: wedging of vertebrae, chronic thoracic / lumbar back pain COMPARISON: None. FINDINGS: Lumbar Spine: L2-L4. Bone mineral density 0.649 g/cm2, T score -3.9. Left Hip: Bone mineral density 0.605 g/cm2, T score -2.8. Left Femoral Neck: Bone mineral density 0.472 g/cm2, T score -3.4. Fracture Risk Calculation (when applicable): 10-year fracture risk of a major osteoporotic fracture 26 percent and of a hip fracture 11 percent. (T score greater or equal to -1.0 to: NORMAL) (T score from -1.1 to -2.4: OSTEOPENIA) (T score less than or equal to -2.5: OSTEOPOROSIS) IMPRESSION: Osteoporosis. Follow-up guidelines as follows: Osteoporosis: Consider a repeat DEXA and Vertebral Fracture Assessment (VFA) exam in 2 years or sooner if medically necessary, to reassess this patient's status. Osteopenia: Consider a repeat DEXA in 2-3 years to reassess this patient's status, or if there is a new clinical indication. Normal: Consider a repeat DEXA in 5 years or sooner, or if there is a new clinical indication. All treatment decisions require clinical judgment and consideration of individual patient factors, including patient preferences, comorbidities, previous drug use, risk factors not captured in the FRAX model (e.g., frailty, falls, vitamin D deficiency, increased bone turnover, interval significant decline in bone density ) and possible under- or over-estimation of fracture risk by FRAX. In addition, the NOF Guide recommends that FDA-approved medical therapies be considered in postmenopausal women and men age >= 50 years with a: * Hip or vertebral (clinical or morphometric) fracture * T-score of <=-2.5 at the spine or hip * Ten-year fracture probability by FRAX of >= 3% for hip fracture or >=20% for major osteoporotic fracture. People with diagnosed cases of osteoporosis or at high risk for fracture should have regular bone mineral density tests. For patients eligible for Medicare, routine testing is allowed once every 2 years. The testing frequency can be increased to one year for patients who have rapidly progressing disease, those who are receiving or discontinuing medical therapy to restore bone mass, or have additional risk factors. Dictated by: Maurice Stephens M.D. on 07/19/2024 at 13:08 Approved by: Maurice Stephens M.D. on 07/19/2024 at 13:09
== END ==
LOC: RAD 10:30
PROVIDERS: PCP Family Medicine; Referring Provider Family Medicine; Visit Provider Family Medicine
DX: M54.14 Radiculopathy, thoracic region (principal); M40.204 Unspecified kyphosis, thoracic region; M43.15 Spondylolisthesis, thoracolumbar region; M43.16 Spondylolisthesis, lumbar region; D18.09 Hemangioma of other sites; M54.6 Pain in thoracic spine; M47.816 Spondylosis without myelopathy or radiculopathy, lumbar region; M48.061 Spinal stenosis, lumbar region without neurogenic claudication; M54.50 Low back pain, unspecified; M81.0 Age-related osteoporosis without current pathological fracture; Z78.0 Asymptomatic menopausal state; R91.1 Solitary pulmonary nodule; G89.29 Other chronic pain
CPT/HCPCS: 72146; 72148; 77080

== ENCOUNTER → 2024-09-14 10:41 | Outpatient (CLI) | payer MEDICARE, SELFPAY ==
--- NOTE | 2024-09-14 10:45 | DI.CT.S_ITS ---
PROCEDURE: CT CHEST WO CON INDICATIONS: 2.4 cm nodule on MRI thoracic spine, cough TECHNIQUE: Noncontrast 5 mm thick sections acquired from the pulmonary apices to the posterior costophrenic angles. 1 mm lung window, 5 mm thick coronal and sagittal and 7 mm axial MIP reformats were then acquired. For radiation dose reduction, the following was used: automated exposure control, adjustment of mA and/or kV according to patient size. COMPARISON: Merged With [facility], , MR THORACIC SPINE WO CON, 07/19/2024, 11:14. FINDINGS: Image quality: Diagnostic. Lower Neck: No enlarged lymph nodes. Thyroid: No thyroid nodules which require sonographic follow up, per consensus guidelines. Axillae: No enlarged lymph nodes. Chest Wall: Unremarkable. Bones: Unremarkable. Lungs and Pleura: No pneumothorax or pleural effusions. There is a spiculated masslike lesion at the right upper lobe which includes areas of air bronchograms, and adjacent slight alveolar consolidation. This measures up to 2.7 x 2.8 cm and is well visualized centered on series 3, image 56. It has a rounded component at its upper lateral aspect that measures 1.8 cm in diameter and also is mildly spiculated. Heart: Heart size is normal. No pericardial effusion. Thoracic Vessels: The aorta and pulmonary arteries demonstrate normal size. Mediastinum and Ingrid: No enlarged lymph nodes. Esophagus: No wall thickening. No hiatal hernia. Upper Abdomen: Visualized upper abdomen solid organs and bowel loops appear normal. 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 Recommend nuclear medicine PET-CT scanning for additional assessment. Both a chronic low-grade infection and primary pulmonary malignancy could produce this appearance. Dictated by: Myron Gregorio M.D. on 09/14/2024 at 11:39 Approved by: Myron Gregorio M.D. on 09/14/2024 at 11:50
== END ==
PROVIDERS: PCP Family Medicine; Referring Provider Family Medicine; Visit Provider Family Medicine
DX: R91.1 Solitary pulmonary nodule (principal); R05.9 Cough, unspecified
CPT/HCPCS: 71250

== ENCOUNTER → 2024-12-04 10:51 | Outpatient (CLI) | payer MEDICARE, SELFPAY ==
[2024-12-04 19:01] LABS: Add Manual Diff / Slide Review NO; Basophils Absolute Auto 0 /uL (0-100); Basophils Percent Auto 0.7 % (0-2); Eosinophils Absolute Auto 100 /uL (0-450); Eosinophils Percent Auto 2.7 % (2-4); Hematocrit 36.6 % (36-46); Hemoglobin 12.4 g/dL (12.0-16.0); Lymphocytes Absolute Auto 1200 /uL (1100-4500); Lymphocytes Percent Auto 29.3 % (25-40); Mean Corpuscular HGB Conc 33.8 % (30-36); Mean Corpuscular Hemoglobin 30.6 PG (26-34); Mean Corpuscular Volume 90.3 fL (80-100); Monocytes Absolute Auto 400 /uL (0-900); Monocytes Percent Auto 8.8 % (3-14); Neutrophils Absolute Auto 2400 /uL (1500-7000); Neutrophils Percent Auto 58.5 % (50-75); Platelet Count 226 X10^3/uL (150-400); Red Blood Cell Count 4.05 X10^6/uL (4.0-5.2); Red Cell Distribution Width 13.1 % (11.6-14.8); White Blood Cell Count 4.1 X10^3/uL (4.5-11.0)
[2024-12-04 19:09] LABS: Alanine Aminotransferase 12 IU/L (<35); Albumin 3.9 g/dL (3.5-5.0); Albumin Globulin Ratio 1.7 (1.0-2.8); Alkaline Phosphatase 102 U/L (38-126); Aspartate Aminotransferase 25 IU/L (14-36); BUN Creatinine Ratio 23.4 (6-22); Bilirubin Total 0.6 mg/dL (0.2-1.3); Blood Urea Nitrogen 25 mg/dL (7-17); Calcium 9.3 mg/dL (8.4-10.2); Carbon Dioxide 28 mmol/L (22-32); Chloride 103 mmol/L (98-107); Estimated Glomerular Filt Rate 52 mL/min (>60); Globulin 2.3 g/dL (1.7-4.1); Glucose 91 mg/dL (70-99); HEMOLYSIS < 15 (0-50); Potassium 4.4 mmol/L (3.4-5.1); Sodium 135 mmol/L (137-145); Total Protein 6.2 g/dL (6.3-8.2)
== END ==
PROVIDERS: PCP Family Medicine; Visit Provider Family Medicine
DX: C34.90 Malignant neoplasm of unspecified part of unspecified bronchus or lung (principal); I10 Essential (primary) hypertension
CPT/HCPCS: 80053; 85025

== ENCOUNTER → 2025-02-06 11:35 | Outpatient (CLI) | payer MEDICARE, SELFPAY ==
[2025-02-06 19:22] LABS: Hematocrit 36.5 % (36-46); Hemoglobin 12.1 g/dL (12.0-16.0); Mean Corpuscular HGB Conc 33.2 % (30-36); Mean Corpuscular Hemoglobin 29.6 PG (26-34); Mean Corpuscular Volume 89.1 fL (80-100); Platelet Count 199 X10^3/uL (150-400)
[2025-02-06 19:34] LABS: HEMOLYSIS < 15 (0-50); Iron 98 ug/dL (37-170)
[2025-02-06 19:35] LABS: Blood Urea Nitrogen 13 mg/dL (7-17); Calcium 9.6 mg/dL (8.4-10.2); Carbon Dioxide 24 mmol/L (22-32); Chloride 106 mmol/L (98-107); Estimated Glomerular Filt Rate > 60 mL/min (>60); Glucose 83 mg/dL (70-99); HEMOLYSIS < 15 (0-50); Potassium 4.5 mmol/L (3.4-5.1); Sodium 138 mmol/L (137-145)
[2025-02-06 19:46] LABS: Percent Iron Saturation 36 % (15-50); Total Iron Binding Capacity 275 ug/dL (265-497); Transferrin 217 mg/dL (206-381)
[2025-02-06 20:11] LABS: Ferritin 203 ng/mL (11-264)
[2025-02-06 20:41] LABS: Folate 10.0 ng/mL (2.76-20.0); Vitamin B12 460 pg/mL (239-931)
== END ==
PROVIDERS: PCP Family Medicine; Visit Provider Family Medicine
DX: E53.8 Deficiency of other specified B group vitamins (principal); R05.3 Chronic cough; I10 Essential (primary) hypertension; Z86.2 Personal history of diseases of the blood and blood-forming organs and certain disorders involving the immune mechanism; C34.11 Malignant neoplasm of upper lobe, right bronchus or lung
CPT/HCPCS: 80048; 82607; 82728; 82746; 83540; 83550; 85027